=== PATIENT | male | born 1935 ===

== ENCOUNTER 2017-04-07 09:50 | Emergency (ER) | payer OTHER ==
[2017-04-07 10:13] VITALS: BP 162/91; PULSE 70; RESP 18; TEMP 98.5; O2SAT 96
[2017-04-07] MEDS ORDERED: Lidocaine 5% Patch TD STA (10:21)
[2017-04-07 10:39] LABS: BASO % 1.1 % (0.0-2.0); EOS # 0.1 K/uL (0.0-0.7); EOS % 2.4 % (0.0-4.0); HEMATOCRIT 45.2 % (35.0-51.0); LYMPH # 1.4 K/uL (1.0-4.3); LYMPH % 35.1 % (20.0-40.0); MEAN CORPUSCULAR HEMOGLOBIN 32.4 pg (27.0-31.0); MEAN CORPUSCULAR HGB CONC 34.5 g/dL (33.0-37.0); MEAN PLATELET VOLUME 8.6 fl (7.2-11.7); MONO # 0.3 K/uL (0.0-0.8); MONO % 7.1 % (0.0-10.0); NEUT # 2.2 K/uL (1.8-7.0); NEUT % 54.3 % (50.0-75.0); NRBC % 0.2 % (0.0-0.0); RED CELL DISTRIBUTION WIDTH 13.7 % (11.5-14.5); WHITE BLOOD COUNT 4.1 K/uL (4.8-10.8)
[2017-04-07 10:45] LABS: RBC URINE 2 /hpf (0-3); URINE BACTERIA FEW (<OCC); URINE BILIRUBIN NEGATIVE (NEGATIVE); URINE BLOOD NEGATIVE (NEGATIVE); URINE COLOR YELLOW (YELLOW); URINE GLUCOSE (UA) NEG (Normal); URINE KETONE NEGATIVE (NEGATIVE); URINE LEUKOCYTE ESTERASE NEG Leu/uL (Negative); URINE PROTEIN NEGATIVE (NEGATIVE); URINE UROBILINOGEN 0.2-1.0 mg/dL (0.2-1.0); WBC URINE 1 /hpf (0-5)
[2017-04-07 10:58] LABS: ALB/GLOB RATIO 1.1 (1.0-2.1); ALKALINE PHOSPHATASE 95 U/L (38-126); ALT/SGPT 34 U/L (21-72); AST/SGOT 26 U/L (17-59); BILIRUBIN,TOTAL 0.6 mg/dl (0.2-1.3); BLOOD UREA NITROGEN 17 mg/dl (9-20); CALCIUM 8.5 mg/dL (8.4-10.2); CARBON DIOXIDE 28 mmol/L (22-30); CHLORIDE 104 mmol/L (98-107); GFR AFRICAN-AMERICAN > 60; GLUCOSE,RANDOM 95 mg/dL (75-110); POTASSIUM 3.9 MMOL/L (3.6-5.0); SODIUM 139 mmol/l (132-148); TOTAL PROTEIN 7.1 G/DL (6.3-8.2)
[2017-04-07] MEDS ORDERED: Lidocaine 5% Patch TD ONE (11:07)
--- NOTE | 2017-04-07 11:41 | ED PDOC ---
HPI: Back Time Seen by Provider: 04/07/17 10:07 Chief Complaint (Nursing): Back Pain Chief Complaint (Provider): low back pain History Per: Patient, Family, Summer Clerk (FLORIN Britton fluzahida dutch) Onset/Duration Of Symptoms: Days (3) Quality Of Discomfort: Sharp Severity: Moderate Previous Symptoms: Back Pain Associated Symptoms: None Exacerbating Factor(s): Turning, Movement, Standing Additional Complaint(s): 82yo male c/o right lumbar pain ongoing for 3 days, worse w movement or bending. Has had a history of similar back pain before, bilaterally, today its mostly R sided. Denies radiation of pain, weakness, numbness or urinary symptoms. States taking motrin and an OTC "patch" without much relief. States had his prostate checked about 6 months ago. Past Medical History Reviewed: Historical Data, Nursing Documentation, Vital Signs Vital Signs: Last Vital Signs Temp 98.5 F 04/07/17 10:12 Pulse 70 04/07/17 10:12 Resp 18 04/07/17 10:12 BP 162/91 H 04/07/17 10:12 Pulse Ox 96 04/07/17 10:12 - Medical History PMH: HTN - Surgical History Other surgeries: gastric ulcer - Family History Family History: States: Unknown Family Hx - Living Arrangements Living Arrangements: With Family - Social History Current smoker - smoking cessation education provided: No Drugs: Denies - Home Medications Home Medications: Ambulatory Orders Medication Instructions Recorded Lidocaine 5% [Lidoderm] 1 each TP DAILY PRN #5 patch 04/07/17 Naproxen [Naprosyn] 500 mg PO BID PRN #14 tablet 04/07/17 traMADol [Ultram] 50 mg PO TID PRN #12 tab 04/07/17 - Allergies Allergies/Adverse Reactions: Allergies Allergy/AdvReac Type Severity Reaction Status Date / Time No Known Allergies Allergy Verified 04/07/17 10:12 Review of Systems ROS Statement: Except As Marked, All Systems Reviewed And Found Negative Constitutional: Negative for: Fever, Chills ENT: Negative for: Ear Discharge, Nose Discharge Cardiovascular: Negative for: Chest Pain, Palpitations Respiratory: Negative for: Cough, Shortness of Breath Gastrointestinal: Negative for: Nausea, Vomiting, Abdominal Pain Genitourinary Male: Negative for: Dysuria, Frequency Musculoskeletal: Positive for: Back Pain. Negative for: Neck Pain, Shoulder Pain, Leg Pain, Foot Pain Skin: Negative for: Rash, Lesions, Jaundice, Bruising Neurological: Negative for: Weakness, Numbness Psych: Negative for: Anxiety Physical Exam - Reviewed Nursing Documentation Reviewed: Yes Vital Signs Reviewed: Yes - Physical Exam Appears: Positive for: Well, Non-toxic, No Acute Distress Head Exam: Positive for: ATRAUMATIC, NORMAL INSPECTION, NORMOCEPHALIC Skin: Positive for: Normal Color, Warm, DRY Eye Exam: Positive for: EOMI, Normal appearance, PERRL ENT: Positive for: Normal ENT Inspection Neck: Positive for: Normal, Painless ROM Cardiovascular/Chest: Positive for: Regular Rate, Rhythm Respiratory: Positive for: CNT, Normal Breath Sounds Gastrointestinal/Abdominal: Positive for: Bowel Sounds, Soft. Negative for: Tenderness Back: Positive for: Normal Inspection, Decreased ROM, Muscle Spasm, Other (R lumbar hypertonicity and tenderness, no redness, no rash, no induration). Negative for: Vertebral Tenderness Extremity: Positive for: Normal ROM Neurologic/Psych: Positive for: Alert, Oriented. Negative for: Motor/Sensory Deficits - Laboratory Results Result Diagrams: 04/07/17 10:27 04/07/17 10:27 - ECG O2 Sat by Pulse Oximetry: 96 Medical Decision Making Medical Decision Making: workup for back pain initiated. Given extreme of age, check bloodwork, toradol, tylenol and lidoderm patch, low dose muscle relaxant initiated. ~1145a labs reviewed, unremarkable. UA clinically unremarkable. ~1215pm pt improved, awake, ambulatory states pain mostly gone. Wants to go home. Rx provided, followup ortho if symptoms persistent. Disposition - Clinical Impression Clinical Impression: Back pain - Patient ED Disposition Is Patient to be Admitted: No Counseled Patient/Family Regarding: Studies Performed, Diagnosis, Need For Followup, Rx Given - Disposition Referrals: Brenda Cali MD [Staff Provider] - Disposition: Routine/Home Disposition Time: 12:20 Condition: STABLE Additional Instructions: See orthopedist for continuing care if back pain persists. You may need other tests or treatment. Take medications as directed. Prescriptions: Lidocaine 5% [Lidoderm] 1 each TP DAILY PRN #5 patch PRN Reason: Pain, Moderate (4-7) Naproxen [Naprosyn] 500 mg PO BID PRN #14 tablet PRN Reason: Pain, Moderate (4-7) traMADol [Ultram] 50 mg PO TID PRN #12 tab PRN Reason: Pain, Moderate (4-7) Instructions: Acute Low Back Pain (ED) Forms: [email or web address] [employer] (Persian) Print Language: SRI LANK[place]
== END 2017-04-07 12:30 | disposition home or self-care (01) ==
LOC: H.ER 09:50
DX: M54.9 Dorsalgia, unspecified (principal); I10 Essential (primary) hypertension; Z87.11 Personal history of peptic ulcer disease; Z87.19 Personal history of other diseases of the digestive system
CPT/HCPCS: 80053; 81003; 85025; 99282; J1885